=== PATIENT | male | born 1980 | race Caucasian/White ===

== ENCOUNTER 2021-05-25 10:45 | Emergency (ER) | payer MEDICAID, SELFPAY ==
[2021-05-25 10:47] VITALS: BP 145/84; PULSE 128; RESP 18; TEMP 36.4; O2SAT 100; BMI 25.8
--- NOTE | 2021-05-25 11:05 | EX.ED.DYSGE1 ---
HPI History of Present Illness Chief Complaint: General Illness Informant: patient Onset/Context/Timing Onset: Today Context: Gradual Onset Timing: Continuous Current Severity: Gone Maximum Severity: Mild Narrative Narrative: 41-year-old male history of diabetes who currently is off his medications is been checking his blood sugars. He is currently homeless he is a 13 and 15-year-old child are living with his parents. He said his has been around for a while. He denies being ill he was sleeping in his car last night he just felt cold. [facility] department wanting evaluated. I do not believe he is under arrest for anything. He has no medical complaints. Prior similar symptoms: No Recent Illness/Hospitalization: No PFSH PFSH Home Medications No Known/Unobtainable [No Known Home Medications] 05/30/17 [History Last Taken Unknown] Allergy/AdvReac Type Severity Reaction Status Date / Time No Known Allergies Allergy Verified 05/25/21 10:50 Social History Smoking Status: Never smoker ROS ROS ED ROS Narrative Denies. Review of Systems ROS Unobtainable: Denies due to encephalopathy Constitutional Constitutional ED: Denies fever(s) Eyes Eyes: Denies change in vision ENT ENT ED: Denies ear pain Cardiovascular Cardiovascular: Denies chest pain Respiratory/Chest Respiratory/Chest: Denies dyspnea Gastrointestinal Gastrointestinal: Denies abdominal pain Genitourinary Genitourinary ED: Denies dysuria Musculoskeletal Musculoskeletal: Denies myalgias Integumentary Denies rash Neurologic Neurologic: Denies headache(s) Psychiatric Psychiatric: Denies depression Endocrine Endocrinology: Denies polyuria Allergic/Immunologic Allergic/Immunologic ED: Denies urticaria EXAM Physical Exam Narrative Exam Narrative: Middle-age male no acute distress vital signs stable afebrile. HEENT exam unremarkable. Moist with memories. Neck nontender no lymphadenopathy. Lungs clear to auscultation bilaterally. Heart regular rhythm rate about 110 no murmur. Chest were nontender. Abdomen soft nontender. Moves all four extremities. Neurovascular intact. His feet are mildly cold but there is good DP pulses and cap refill. No infection. Normal range of motion both upper and lower extremities no edema. Nontender. Back nontender. Neurologically is awake alert. He is answering questions and following commands. Const Vital Signs: 05/25/21 10:47 05/25/21 11:02 05/25/21 13:10 Temperature 97.6 F L Temperature Source Temporal Pulse Rate 128 H Respiratory Rate 18 20 H Respiratory Effort Normal Respiratory Pattern Normal Blood Pressure 145/84 H Blood Pressure Mean 104 Pulse Ox 100 Oxygen Delivery Method Room Air 05/25/21 14:29 Temperature Temperature Source Pulse Rate 108 H Respiratory Rate 22 H Respiratory Effort Respiratory Pattern Blood Pressure 141/96 H Blood Pressure Mean 111 Pulse Ox Oxygen Delivery Method Positive well nourished and well developed; Negative for cachectic, contractures or unkempt General Appearance ED: well developed and NAD; Negative for unkempt, cachectic, contractures, cyanotic, diaphoretic or pallor Nutritional Appearance: Negative for cachectic HEENT Reports moist mucous membranes Negative for trauma or tenderness Eyes PERRL and EOMs intact bilaterally Neck no lymphadenopathy, supple and no JVD General: Negative for tenderness Chest Wall inspection of chest normal and palpation of chest normal Resp normal respiratory effort and clear to auscultation bilaterally Effort and Inspection: Negative for pain with movement Auscultation: Negative for rales, rhonchi or wheezes Cardio regular rhythm, S1 normal heart sound, S2 normal heart sound and no murmurs Rate: tachycardic GI normal to inspection, nondistended, normoactive bowel sounds, non-tender, non-distended and no masses Inspection: Negative for abdominal distention Auscultation: normoactive bowel sounds Palpation: soft; Negative for tender, guarding or rebound tenderness present Back/Spine no CVA tenderness Extremity normal to inspection General Extremety ED: Negative for edema or tenderness General Extremity: Negative for edema Neuro oriented x3 Sensorium / Orientation: alert; Negative for orientation impaired, lethargic or stuporous Motor Exam: strength 5/5 throughout Psych mental status grossly normal Appearance: Negative for unkempt Mood & Affect: depressed and tearful Skin no rashes or lesions noted and no wounds General Skin Exam: Negative for jaundice or pallor MDM MDM MDM Narrative Medical decision making narrative: Middle-age male homeless. He will be warmed up with blankets. We will get him some to eat. I will get a psychiatric social worker supervisor consultation. Medically his exam is benign. He has diabetic history and has been off his meds I will get a BGT. castables worker spoke to the patient at length her concern is he seems to have a component of depression has had some suicidal thoughts. She is going to see if she can get him admitted to a psychiatric facility. That is the reason the labs were done. Repeat exam at 2:35 PM patient is doing well. Awaiting disposition. Lab Data Lab results narrative: Blood glucose equals 153. Labs are obtained white count 8. Hemoglobin 16. Electrolytes unremarkable gap of 5 normal BUN and creatinine. Glucose 117 on that lab. Alcohol negative. Labs: Laboratory Results - last 24 hr 05/25/21 05/25/21 05/25/21 11:11 12:55 12:55 WBC 8.7 RBC 5.71 Hgb 16.6 H Hct 49.4 MCV 86.5 MCH 29.1 MCHC 33.6 RDW Std Deviation 39.2 RDW Coeff of Radha 12.4 Plt Count 324 MPV 11.2 Immature Gran % (Auto) 0.300 Neut % (Auto) 64.2 Lymph % (Auto) 23.1 [place] % (Auto) 9.5 Eos % (Auto) 2.2 Baso % (Auto) 0.7 Absolute Neuts (auto) 5.6 Absolute Lymphs (auto) 2.01 Nucleated RBC % 0 Sodium 141 Potassium 3.5 Chloride 107 Carbon Dioxide 29.0 Anion Gap 5 BUN 18 Creatinine 0.98 Estim Creat Clear Calc 101.39 Est GFR (MDRD) Af Amer 108 Est GFR (MDRD) Non-Af 89 BUN/Creatinine Ratio 18.4 Glucose 117 H Calcium 8.7 Ethyl Alcohol POC Glucose 153 H 05/25/21 12:55 WBC RBC Hgb Hct MCV MCH MCHC RDW Std Deviation RDW Coeff of Radha Plt Count MPV Immature Gran % (Auto) Neut % (Auto) Lymph % (Auto) [place] % (Auto) Eos % (Auto) Baso % (Auto) Absolute Neuts (auto) Absolute Lymphs (auto) Nucleated RBC % Sodium Potassium Chloride Carbon Dioxide Anion Gap BUN Creatinine Estim Creat Clear Calc Est GFR (MDRD) Af Amer Est GFR (MDRD) Non-Af BUN/Creatinine Ratio Glucose Calcium Ethyl Alcohol < 3.0 POC Glucose Rhythm Strip Rhythm Strip: Sinus Rhythm Rate: 100 Ectopy: PVC(s) EKG Initial EKG: Attestation: I personally reviewed and interpreted this EKG as follows: Interpretation: Sinus Rhythm and No Acute Injury Pattern Comments: Normal sinus rhythm rate of 100 no acute signs of [place] or ischemia. There is some artifact in lead V2 but otherwise EKG is unremarkable except for occasional PVCs. Prior EKG tracings: not available for review Discharge Plan Triage Chief Complaint: General Illness ED Provider: Jose Mahoney Dx/Rx/DC Orders Clinical Impression: Depression Prescriptions: No Action No Known Home Medications RF: 0 Primary Care Provider: Care Physician,No Primary Referrals: NOT,DEFINED [NON-STAFF] - Disposition Disposition: Psychiatric Hospital or Unit
[2021-05-25 11:15] LABS: Bedside Glucose 153 mg/dL (70-110)
--- NOTE | 2021-05-25 11:44 | ED.RN ---
Backpack and 2 coats put in charge office. backpack is full of different belongings. Pt is aware it will be in there until he leaves
[2021-05-25 13:10] VITALS: RESP 20
--- NOTE | 2021-05-25 13:10 | EKG12_ITS ---
Test Reason : PLACEMENT Blood Pressure : / mmHG Vent. Rate : 100 BPM Atrial Rate : 100 BPM P-R Int : 134 ms QRS Dur : 106 ms QT Int : 358 ms P-R-T Axes : 084 117 050 degrees QTc Int : 461 ms Sinus rhythm with occasional Premature ventricular complexes Inferior infarct , age undetermined Abnormal ECG Confirmed by JARET DIAZ, IGNACIO ([id number]), scientific publications editor JOHNNY PETERSON ([id number]) on 05/28/2021 7:09:08 AM Referred By: KELSI Confirmed By:IGNACIO RAYGOZA MD
[2021-05-25 13:28] LABS: Absolute Lymphocyte Count 2.01 X10^3/uL (0.83-4.51); Absolute Neutrophil Count 5.6 X10^3/uL (2.0-7.7); Basophil# 0.06 X10^3/uL; Basophil% 0.7 % (0-1); Eosinophil# 0.19 X10^3/uL; Eosinophils% 2.2 % (0-5); Hematocrit 49.4 % (40-54); Hemoglobin 16.6 g/dL (13.0-16.5); Lymphocyte # 2.01 X10^3/ul (0.83-4.51); Lymphocyte % 23.1 % (19-41); Mean Corp Hgb Conc 33.6 g/dL (32-36); Mean Corpuscular Hgb 29.1 pg (27.0-32.0); Mean Corpuscular Volume 86.5 fL (80-94); Mean Platelet Vol. 11.2 fl (6.2-12.0); Monocyte# 0.83 X10^3/uL; Monocyte% 9.5 % (0-10); NRBC Flagged by Analyzer 0 % (0-5); Neutrophil # 5.59 X10^3/uL (2.7-7.7); Neutrophil % 64.2 % (47-70); Platelet Count 324 K/mm3 (150-450); RBC Distribution Width CV 12.4 % (11.6-14.6); RBC Distribution Width SD 39.2 fl (35.1-43.9); Red Blood Count 5.71 M/mm3 (4.6-6.2); White Blood Count 8.7 K/mm3 (4.4-11.0)
[2021-05-25 13:37] LABS: Anion Gap 5 (5-15); BUN 18 mg/dL (7-18); BUN/Creat Ratio 18.4 RATIO (10-20); Calcium,Total 8.7 mg/dL (8.5-10.1); Chloride 107 mmol/L (98-107); Creatinine, Serum 0.98 mg/dL (0.70-1.30); EST Glomerular Filtration Rate 89 mL/min (>60); Est Glom Filt Rate - Afr Amer 108 mL/min (>60); Estimated Creatinine Clearance 101.39 ml/min; Glucose 117 mg/dL (74-106); Potassium 3.5 mmol/L (3.5-5.1); Sodium Level 141 mmol/L (136-145)
[2021-05-25 13:41] LABS: Alcohol, Blood (Medical)-Serum < 3.0 mg/dL
[2021-05-25 14:29] VITALS: BP 141/96; PULSE 108; RESP 22
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
--- NOTE | 2021-05-25 14:39 | ED.RN ---
This patient cooperative during stay, continues to ask to call or help find her. Agitated at times but calms with reassurance and verbal deescalation. Given water with requests for urine sample.
[2021-05-25 15:23] LABS: Mucous, Urine 0 SEEN /hpf (<or=2+); Red Blood Cells-Urine 0 SEEN /hpf (0-5)
[2021-05-25 15:25] LABS: Color, Urine Yellow (Yellow); Glucose, Dipstick Normal (Normal); Ketone-Dipstick 5 mg/dl (Negative); Leukocyte Esterase-Dipstick 25 /ul (Negative); Nitrite-Dipstick Negative (Negative); Occult Blood-Urine Negative /ul (Negative); Protein-Dipstick 15 mg/dl (Negative); Urine Clarity Sl. Cloudy (Clear); Urine Urobilinogen 4 mg/dl (Normal)
[2021-05-25 15:29] LABS: Urine Bilirubin Dipstick 1 mg/dL (Negative)
[2021-05-25 15:34] LABS: Calcium Oxalate Crystals Ur 2+ /hpf (<or=2+)
[2021-05-25 15:35] LABS: Bacteria RARE /hpf (None Seen)
[2021-05-25 15:37] LABS: Squamous Epithelial Cells - UA 0-5 SEEN /hpf (0-5); White Blood Cells 0-5 SEEN /hpf (0-5)
[2021-05-25 16:01] LABS: Amphetamine Urine VISTA POSITIVE (<1000 ng/mL); Barbiturate Urine VISTA NEGATIVE (< 200 ng/mL); Benzodiazepine Urine VISTA NEGATIVE (< 200 ng/mL); Cocaine Urine VISTA NEGATIVE (< 300 ng/mL); Ecstacy Urine VISTA NEGATIVE (< 500 ng/mL); Methadone Urine VISTA NEGATIVE (< 300 ng/mL); PCP Urine VISTA NEGATIVE (< 25 ng/mL); THC Urine VISTA POSITIVE (< 50 ng/mL); Vista UDS pH Range 5
[2021-05-25 16:20] VITALS: BP 141/83; PULSE 108; RESP 20
--- NOTE | 2021-05-25 17:47 | CM.ED ---
SW Note SW made referral to [facility]. Faxed referrals. Olga SCRUGGS
--- NOTE | 2021-05-25 17:56 | ED.RN ---
patient sleeping at this time, dinner tray ordered.
--- NOTE | 2021-05-25 18:53 | ED.RN ---
PHYSICIANS CALLED [facility] WILL BE HERE AT 8:30PM.
--- NOTE | 2021-05-25 18:56 | CM.ED ---
BRIGITTE called [facility] and spoke to Elif. Patient has been accepted at [facility]. Accepting MD is Dr. Estrada. He is going to the Dual Diagnosis Unit. RN to RN is [phone]. BRIGITTE updated [facility]cose cellar charge hand and RN. BRIGITTE updated MD. [place] slip faxed to [facility]. Original in packet. BRIGITTE called [facility] and advised patient is leaving at 8:30pm. [employer] arranged for transport for patient. SW and RN met with patient and he said I want some privacy. BRIGITTE updated him that he is going to [facility] and this headline writer will give him address and name of facility. HRO was updated. Olga SCRUGGS
[2021-05-25 19:31] VITALS: RESP 16
--- NOTE | 2021-05-25 19:48 | ED.RN ---
1951- report called to Alyx at [facility]
== END 2021-05-25 21:04 ==
PROVIDERS: Emergency Provider Emergency Medicine
DX: F32.A Depression, unspecified (principal); Z59.00 Homelessness unspecified; E11.9 Type 2 diabetes mellitus without complications; I49.3 Ventricular premature depolarization
CPT/HCPCS: 80048; 80307; 81001; 82077; 82962; 85025; 87426; 93005; 99285

== ENCOUNTER 2021-09-13 12:52 | Emergency (ER) | payer MEDICAID, SELFPAY ==
[2021-09-13 12:55] VITALS: BP 169/103; PULSE 97; RESP 17; TEMP 36.8; BMI 25.1
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
== END 2021-09-13 15:54 | disposition home or self-care (01) ==
PROVIDERS: Emergency Provider Emergency Medicine; Visit Provider Emergency Medicine
DX: S00.01XA Abrasion of scalp, initial encounter (principal); Y04.8XXA Assault by other bodily force, initial encounter; Y93.9 Activity, unspecified; Y92.9 Unspecified place or not applicable; F17.200 Nicotine dependence, unspecified, uncomplicated
CPT/HCPCS: 70450; 99282

== ENCOUNTER 2021-09-15 19:02 | Emergency (ER) | payer MEDICAID, SELFPAY ==
[2021-09-15 19:05] VITALS: BP 146/95; PULSE 96; RESP 16; TEMP 36.6; O2SAT 99; BMI 25.1
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
[2021-09-15 20:01] LABS: Absolute Lymphocyte Count 2.39 X10^3/uL (0.83-4.51); Absolute Neutrophil Count 7.2 X10^3/uL (2.0-7.7); Basophil# 0.04 X10^3/uL; Basophil% 0.4 % (0-1); Eosinophil# 0.14 X10^3/uL; Eosinophils% 1.3 % (0-5); Hemoglobin 14.8 g/dL (13.0-16.5); Lymphocyte # 2.39 X10^3/ul (0.83-4.51); Lymphocyte % 21.6 % (19-41); Mean Corp Hgb Conc 33.6 g/dL (32-36); Mean Corpuscular Hgb 30.1 pg (27.0-32.0); Mean Corpuscular Volume 89.4 fL (80-94); Mean Platelet Vol. 11.2 fl (6.2-12.0); Monocyte# 1.29 X10^3/uL; Monocyte% 11.7 % (0-10); NRBC Flagged by Analyzer 0 % (0-5); Neutrophil # 7.15 X10^3/uL (2.7-7.7); Neutrophil % 64.6 % (47-70); Platelet Count 292 K/mm3 (150-450); RBC Distribution Width CV 12.8 % (11.6-14.6); RBC Distribution Width SD 42.4 fl (35.1-43.9); Red Blood Count 4.92 M/mm3 (4.6-6.2); White Blood Count 11.1 K/mm3 (4.4-11.0)
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
[2021-09-15 20:52] LABS: Anion Gap 7 (5-15); BUN 19 mg/dL (7-18); BUN/Creat Ratio 20.2 RATIO (10-20); Calcium,Total 9.2 mg/dL (8.5-10.1); Chloride 104 mmol/L (98-107); Creatinine, Serum 0.94 mg/dL (0.70-1.30); EST Glomerular Filtration Rate 93 mL/min (>60); Est Glom Filt Rate - Afr Amer 113 mL/min (>60); Estimated Creatinine Clearance 109.03 ml/min; Glucose 100 mg/dL (74-106); Potassium 3.7 mmol/L (3.5-5.1); Sodium Level 140 mmol/L (136-145)
[2021-09-15 21:57] LABS: Amphetamine Urine VISTA POSITIVE (<1000 ng/mL); Barbiturate Urine VISTA NEGATIVE (< 200 ng/mL); Benzodiazepine Urine VISTA NEGATIVE (< 200 ng/mL); Cocaine Urine VISTA NEGATIVE (< 300 ng/mL); Ecstacy Urine VISTA POSITIVE (< 500 ng/mL); Methadone Urine VISTA POSITIVE (< 300 ng/mL); PCP Urine VISTA NEGATIVE (< 25 ng/mL); THC Urine VISTA POSITIVE (< 50 ng/mL); Vista UDS pH Range 5
--- NOTE | 2021-09-15 22:05 | CM.ED ---
[facility]. Clinical information faxed. Will continue to follow. Adrienne VEE, ELISSA
[2021-09-15 22:26] VITALS: RESP 16; O2SAT 99
--- NOTE | 2021-09-15 22:31 | CM.ED ---
Social Work Telephone call to crisis, Saima. Handoff provided as end of social work shift. Medical team updated. Adrienne Hayden MSW, JOSES
--- NOTE | 2021-09-15 23:03 | CM.ED ---
Social Work Telephone call received from [facility], patient accepted by Dr. Wise to the Intensive care unit. Nurse to call report to [phone]. [place] slip faxed. Patient and medical team updated. PLAN: [facility]. Adrienne VEE, ELISSA
[2021-09-15 23:15] VITALS: RESP 16
[2021-09-16] VITALS (7 sets, daily range): BP systolic 122–130; BP diastolic 77–79; PULSE 74–75; RESP 14–18; O2SAT 97–99
== END 2021-09-16 07:14 ==
PROVIDERS: Emergency Provider Emergency Medicine; Visit Provider Emergency Medicine
DX: F23 Brief psychotic disorder (principal); F15.10 Other stimulant abuse, uncomplicated; F16.10 Hallucinogen abuse, uncomplicated; F17.200 Nicotine dependence, unspecified, uncomplicated; R45.851 Suicidal ideations; F12.10 Cannabis abuse, uncomplicated
CPT/HCPCS: 80048; 80307; 82077; 85025; 87811; 96372; 99285; J3486

== ENCOUNTER 2023-03-26 01:41 | Emergency (ER) | payer MEDICAID, SELFPAY ==
[2023-03-26 01:41] VITALS: BP 163/81; PULSE 93; RESP 19; TEMP 36.4; O2SAT 98; BMI 26.4
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
[2023-03-26] MEDS: Lidocaine 1% /Epi 1:100 (20ml) 20 ML Vial INFILT (01:59)
== END 2023-03-26 02:41 ==
LOC: ED 02:01
PROVIDERS: Emergency Provider Emergency Medicine; Visit Provider Emergency Medicine
DX: S01.81XA Laceration without foreign body of other part of head, initial encounter (principal); F10.129 Alcohol abuse with intoxication, unspecified; S01.511A Laceration without foreign body of lip, initial encounter; F17.200 Nicotine dependence, unspecified, uncomplicated; S01.512A Laceration without foreign body of oral cavity, initial encounter; W22.8XXA Striking against or struck by other objects, initial encounter
CPT/HCPCS: 12014; 99283

== ENCOUNTER 2025-04-21 16:51 | Emergency (ER) | payer SELFPAY ==
[2025-04-21 17:08] VITALS: BP 156/106; PULSE 103; RESP 18; TEMP 36; O2SAT 100; BMI 30.6
[2025-04-21 18:00] VITALS: BP 120/110; PULSE 87; O2SAT 99
[2025-04-21 19:00] VITALS: BP 129/88; PULSE 87; RESP 16; O2SAT 99
[2025-04-21 19:16] LABS: Anion Gap 15 (5-15); BUN 20 mg/dL (4-19); BUN/Creat Ratio 29.0 RATIO (10-20); Calcium,Total 9.0 mg/dL (7.6-11.0); Carbon Dioxide 23.5 mmol/L (21.0-32.0); Chloride 103 mmol/L (98-108); Estimated Creatinine Clearance 158.43 ml/min (50-250); Glucose 116 mg/dL (70-99); Potassium 3.6 mmol/L (3.3-5.1)
[2025-04-21 19:21] VITALS: BP 129/88; PULSE 87; RESP 16; TEMP 36; O2SAT 99
== END 2025-04-21 19:48 | disposition home or self-care (01) ==
PROVIDERS: Emergency Provider Surgery; Visit Provider Surgery
DX: R45.851 Suicidal ideations (principal); F17.200 Nicotine dependence, unspecified, uncomplicated
CPT/HCPCS: 80048; 99285